=== PATIENT | female | born 1995 | race Two or more races ===

== ENCOUNTER 2018-06-23 18:38 | Emergency (ER) | payer MEDICAID ==
[~2018-06-23] VITALS: Ht 160 cm; Wt 89.0 kg
[2018-06-23] MEDS ORDERED: IBUPROFEN 600MG TABLET PO ONE (22:00)
[2018-06-23 22:15] VITALS: BP 121/79
== END 2018-06-23 22:15 | disposition home or self-care (01) ==
LOC: ER 18:38
DX: S20.319A Abrasion of unspecified front wall of thorax, initial encounter (principal); V49.88XA Car occupant (driver) (passenger) injured in other specified transport accidents, initial encounter; Y93.89 Activity, other specified; Y92.89 Other specified places as the place of occurrence of the external cause; Y99.8 Other external cause status
CPT/HCPCS: 99282